=== PATIENT | female | born 1970 | race Caucasian/White ===

== ENCOUNTER 2016-09-14 06:13 | Emergency (ER) | payer SELFPAY ==
[~2016-09-14] VITALS: Ht 160 cm; Wt 59.4 kg
[2016-09-14 06:14] VITALS: BP 134/88
== END 2016-09-14 07:12 | disposition home or self-care (01) ==
LOC: ED 07:06
DX: K08.89 Other specified disorders of teeth and supporting structures (principal); G43.909 Migraine, unspecified, not intractable, without status migrainosus; F17.210 Nicotine dependence, cigarettes, uncomplicated; F15.10 Other stimulant abuse, uncomplicated
CPT/HCPCS: 99283